=== PATIENT | male | born 2005 | race Caucasian/White ===

== ENCOUNTER 2023-03-04 19:12 | Emergency (ER) | payer OTHER, SELFPAY ==
--- NOTE | 2023-03-04 19:15 | XRR_ITS ---
PROCEDURE INFORMATION: Exam: XR Right Hand Exam date and time: 03/04/2023 7:19 PM Age: 17 years old Clinical indication: Injury or trauma; Other: Crush injury; Crushing; Finger; Right; Thumb; Additional info: Injury, thumb crush TECHNIQUE: Imaging protocol: Radiologic exam of the right hand. Views: 3 or more views. COMPARISON: No relevant prior studies available. FINDINGS: Bones/joints: Normal. Soft tissues: There is edema in the soft tissues surrounding the 1st digit. XR/XR hand RT min 3V* 13440 IMPRESSION: There is edema in the soft tissues surrounding the 1st digit.
[2023-03-04 19:24] VITALS: BP 127/79; PULSE 107; RESP 18; TEMP 37; O2SAT 98
--- NOTE | 2023-03-04 19:29 | W.ED.WOUNDLC ---
HPI - Wound/Laceration General: Chief Complaint: Wound/Laceration Stated Complaint: Rt Thumb Injury Time Seen by Provider: 03/04/23 19:15 History of Present Illness: 17-year-old male patient comes in today with injury to the right thumb. Patient was splitting wood and accidentally got the thumb trapped between 2 logs. Patient has normal range of motion of the thumb. Patient has abrasion to the distal part of the thumb. Patient's tetanus is up-to-date. Patient appears nontoxic. Patient appears nontoxic. Associated symptoms: Denies fever(s) Review of Systems General: Reports: 10 or more systems reviewed and unremarkable except in HPI and below Const: Denies: fever(s) Card: Denies: chest pain Resp: Denies: dyspnea Musc: Reports: extremity pain Skin/Breast: Reports: new lesions Physical Exam Const: COMMON NORMALS: alert HENMT: COMMON NORMALS: atraumatic HEAD & SCALP: atraumatic Neck/C-Spine: COMMON NORMALS: full ROM Resp: COMMON NORMALS: normal respiratory effort Cardio: COMMON NORMALS: regular rate RATE: regular rate Back/Pelvis: COMMON NORMALS: thoracic and lumbar spine normal to inspection Extremity: RIGHT UPPER EXTREMITY: Yes hand & digits (No subungual hematoma, superficial skin flap and abrasion to distal thumb) Neuro: SENSORIUM/ORIENTATION: Yes alert Skin: TRAUMA: abrasion (Thumb right finger abrasion) Course Vital Signs: Vital signs: Vital Signs Temperature 98.6 F 03/04/23 19:24 Pulse Rate 107 H 03/04/23 19:24 Respiratory Rate 18 03/04/23 19:24 Blood Pressure 127/79 03/04/23 19:24 Pulse Oximetry 98 03/04/23 19:24 Oxygen Delivery Me thod 03/04/23 19:24 MDM - Wound/Laceration Medical Decision Making Patient comes in today for injury to the right hand thumb. On exam patient has some superficial skin flap and abrasion to the distal thumb. No subungual hematoma. Normal range of motion of the finger. Lacerations are superficial. Differential diagnosis includes fracture, skin abrasion/laceration, crush injury. X-ray showed no fracture. Reviewed exam with patient with recommendations for treatment of wound. Patient reported understanding agreed to plan. We will cover patient with Augmentin due to crush injury nature of the distal finger. Discharge Plan Discharge Patient Disposition: Home Clinical Impression: Crushing injury of finger of right hand Condition: Stable Prescriptions: New amoxicillin-pot clavulanate 875-125 mg tablet 1 tab PO BID Qty: 14 0RF Discharge Orders: Discharge ED (Routine); Ordered 03/04/23 Ordered By: Avery Chavez Discharge Diet: Usual diet Discharge Activity: Increase activity as tolerated Patient Instructions: Abrasion (ED) Activity Restrictions/Additional Instructions: Clean wound 2 times daily with mild soap and water. Cover with antibiotic ointment and dressed to keep clean. Is important keep the wound is clean and dry as possible. Use acetaminophen and ibuprofen for pain. Follow-up with primary care in 3 to 4 days for recheck. Return to ED for new concerns. Stand Alone Forms: Work/School Release Coding Level of Care Code ED Center Director Lead Teacher for [employer]
[2023-03-04] MEDS: amoxicillin-clav 875-125 mg Tablet 1 TAB PO (20:03)
[2023-03-04] MEDS: bacitracin ointment Pkt 1 EACH TOPICAL (20:04)
--- NOTE | 2023-03-09 14:26 | DCPLANNER ---
pig farm manager called patient due to no primary care physician - no answer at this time.
== END 2023-03-04 20:34 | disposition home or self-care (01) ==
PROVIDERS: Emergency Provider Nurse Practitioner Family
DX: S67.01XA Crushing injury of right thumb, initial encounter (principal); W23.0XXA Caught, crushed, jammed, or pinched between moving objects, initial encounter
CPT/HCPCS: 73130; 99283; A6446